=== PATIENT | female | born 2005 | race Caucasian/White ===

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

== ENCOUNTER 2024-01-04 19:43 | Emergency (ER) | payer BC, MEDICAID, SELFPAY ==
[2024-01-04 19:53] VITALS: BP 146/105; PULSE 73; RESP 18; TEMP 36.7; O2SAT 100
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
--- NOTE | 2024-01-04 21:32 | DI.RAD_ITS ---
Exam(s) XR FOOT RT COMPLETE EXAM: XR FOOT RT COMPLETE CLINICAL HISTORY: injury. TECHNIQUE: 2D digital imaging was performed of the right foot. Three images were obtained. AP, obl ique and lateral views were obtained. COMPARISON: No exams were available for comparison FINDINGS: BONES: No acute fracture is present. No bony destructive lesion is seen. Note is made of a bipartite medial sesamoid. JOINTS: No dislocation present. SOFT TISSUE: Normal. IMPRESSION: Unremarkable radiographs of the right foot. DATA REPOSITORY: RADIATION DOSE DELIVERED:
--- NOTE | 2024-01-04 21:32 | DI.RAD_ITS ---
Exam(s) XR HAND RT COMPLETE EXAM: XR HAND RT COMPLETE CLINICAL HISTORY: hand injury, pain at thenar eminence. TECHNIQUE: 2D digital imaging was performed of the right hand. Three images were obtained. AP, late ral and oblique views were obtained. COMPARISON: There are no priors for comparison. FINDINGS: BONES: No acute fracture is present. No bony destructive lesion is seen. JOINTS: No dislocation present. SOFT TISSUE: Normal. IMPRESSION: Unremarkable radiographs of the right hand. DATA REPOSITORY: RADIATION DOSE DELIVERED:
[2024-01-04] MEDS: Bacitracin 1 PACKET TP (22:10)
--- NOTE | 2024-01-04 22:13 | DI.VRAD_ITS ---
PROCEDURE INFORMATION: Exam: XR Right Hand Exam date and time: 01/04/2024 9:26 PM Age: 18 years old Clinical indication: Injury or trauma; Blunt trauma (contusions or hematomas); Hand; Right; Injury date: 01/04/24; Patient HX: Injury fall, pain at thenar eminence TECHNIQUE: Imaging protocol: Radiologic exam of the right hand. Views: 3 or more views. COMPARISON: No relevant prior studies available. FINDINGS: Bones/joints: Bone mineralization is age-appropriate. There is no evidence of fracture. No evidence of dislocation. The joint spaces are adequately preserved; no significant degenerative narrowing and no bony erosion seen. Soft tissues: No radiopaque foreign body present. There is soft tissue swelling present. IMPRESSION: 1. No acute osseous abnormality. 2. There is soft tissue swelling present. Dictated and Authenticated by: Jake Burroughs MD. Ordering:MELVIN Warren MD
--- NOTE | 2024-01-04 22:26 | DI.VRAD_ITS ---
PROCEDURE INFORMATION: Exam: XR Right Foot Exam date and time: 01/04/2024 9:21 PM Age: 18 years old Clinical indication: Injury or trauma; Blunt trauma; Foot; Right; Injury date: 01/04/24; Patient HX: Pain, fall TECHNIQUE: Imaging protocol: Radiologic exam of the right foot. Views: 3 or more views. COMPARISON: No relevant prior studies available. FINDINGS: Bones/joints: Bone mineralization is age-appropriate. There is no evidence of fracture. No evidence of dislocation. The joint spaces are adequately preserved; no significant degenerative narrowing and no bony erosion seen. Soft tissues: No radiopaque foreign body present. There is soft tissue swelling present. IMPRESSION: 1. No acute osseous abnormality. 2. There is soft tissue swelling present. Dictated and Authenticated by: Jake Burroughs MD. Ordering:MELVIN Warren MD
== END 2024-01-04 22:59 | disposition home or self-care (01) ==
PROVIDERS: Emergency Provider Nurse Practitioner Family; PCP Family Medicine
DX: S80.211A Abrasion, right knee, initial encounter (principal); S60.511A Abrasion of right hand, initial encounter; Y93.01 Activity, walking, marching and hiking; W19.XXXA Unspecified fall, initial encounter
CPT/HCPCS: 81025; 99284; 73130; 73630; 99283

== ENCOUNTER 2024-06-01 10:49 | Emergency (ER) | payer BC, SELFPAY ==
[2024-06-01] VITALS (12 sets, daily range): BP systolic 91–127; BP diastolic 38–81; PULSE 51–75; RESP 15–18; TEMP 36.5–36.8; O2SAT 96–100
--- NOTE | 2024-06-01 11:00 | RT.EKG_ITS ---
APPROVED REPORT Exam: Resting ECG Reason for Exam: DIZZINESS Patient Location: E HR:61 bpm ECG Measurements Heart Rate 61 AXIS NM 152 P 41 QRSd 86 QRS 73 QT 422 T 49 QTc 426 Conclusion Sinus rhythm...normal P axis, V-rate 60- 99
--- OUTSIDE RECORDS SUMMARY | 2024-06-01 11:02 | XMS_ITS | Encounter Summary ---
Author Organization [facility] Address [address] [place] [address] Care Team Providers Care Container Repairer Name Role Phone Unknown, Provider Primary Care Provider Unava ilable Encounter Details Date Type Department Care Team (Late st Contact Info) Description 10/08/2023 Lab Requisition [facility] Pathology & Laboratory Medicine - [facility] [address] [place] [address] Outr Resulting Lab, Provider Social History Tobacco Use Types Packs/Day Years Used Date Smoking Tobacco: Never Assessed Interpersonal Safety Answer Date Record ed Physically Hurt Never 06/02/2020 Verbally Threaten Not on file 06/02/2020 Comments Unknown Sex and Gender Information Value Date Recorded Sex Assigned at Not on file Legal Sex Female 9:52 EST Gender Identity Not on file Sexual Orientation Not on file documented as of this encounter Plan of Treatment Not on file documented as of this encounter Procedures Procedure Name Priority Date/Time Associated Diagnosis Comments CHLAMYDIA/N. GONORRHOEAE AMPLIFIED NUCLEIC ACID Routine 10/07/2023 15:00 EDT documented in this encounter Results * CHLAMYDIA/N. GONORRHOEAE AMPLIFIED RNA (10/07/2023 15:00 EDT) Neisseria gonorrhoeae Result Negative Negative 10/09/2023 15:14 EDT [facility] Chlamydia trachomatis Result Negative Negative 10/09/2023 15:14 EDT [facility] Swab ENDOCERVICAL STRUCTURE / Unknown 10/07/2023 15:00 EDT 10/08/2023 17:41 EDT us Provider Outr Resulting Lab MICROBIOLOGY - GENER AL ORDERABLES Final Result [facility] [address] [place] [address] documented in this encounter Visit Diagnoses Not on filedocumented in this encounter Care Teams Container Repairer Relationship Specialty Start Date End Date Unknown, Provider, PCP - General 03/09/24 documented as of this encounter
--- OUTSIDE RECORDS SUMMARY | 2024-06-01 11:02 | XMS_ITS | Continuity of Care Document ---
Author Organization [facility] Address [address] [place] [address] Care Team Providers Care Swimming Pool Salesperson Name Role Phone MEKA BREWER Primary Care Physician Encounter [facility] NBR [id number] Date(s): 03/24/24 - 03/24/24 [facility] [address] [place], [place] [address] Discharge Disposition: Home Allergies, Adverse Reactions, Alerts No Known Medication Allergies Assessment and Plan Future Appointments Medications Christina 24 Hour Allergy oral tablet 180 mg = 1 tab, Oral, Daily, # 30 tab, 2 Refill(s), Pharmacy: [id number] Start Date: 02/26/24 Stop Date: 05/26/24 Status: Ordered doxycycline hyclate 0 Refill(s) Start Date: 02/19/24 Status: Ordered drospirenone-ethinyl estradiol 0 Refill(s) Start Date: 02/19/24 Status: Ordered HYDROcodone-acetaminophen 5 mg-325 mg oral tablet 1 tab, Oral, every 6 hr, PRN pain, moderate, # 18 tab, 0 Refill(s), Pharmacy: [facility], 175.26, cm, 03/14/24 11:03:00 EDT, Height, 73.94, kg, 03/14/24 11:03:00 EDT, Weight Dosing Start Date: 03/20/24 Stop Date: 03/25/24 Status: Ordered metroNIDAZOLE 0 Refill(s) Start Date: 02/19/24 Status: Ordered Mirena 0 Refill(s) Start Date: 02/19/24 Status: Ordered mirtazapine 7.5 mg oral tablet 15 mg = 2 tab, Oral, every night at bedtime, # 60 tab, 0 Refill(s) Start Date: 03/14/24 Status: Ordered Nasonex 50 mcg/inh nasal spray 2 sprays, Nostril-Both, BID, # 1 EA, 2 Refill(s), Pharmacy: [id number] Start Date: 02/26/24 Stop Date: 05/26/24 Status: Ordered ondansetron 4 mg oral tablet, disintegrating 4 mg = 1 tab, Oral, every 8 hr, PRN as needed for nausea/vomiting, # 8 tab, 1 Refill(s), Pharmacy: [facility], 175.26, cm, 03/14/24 11:03:00 EDT, Height, 73.94, kg, 03/14/24 11:03:00 EDT,Weight Dosing Start Date: 03/20/24 Stop Date: 03/24/24 Status: Ordered PARoxetine 0 Refill(s) Start Date: 02/19/24 Status: Ordered predniSONE 20 mg oral tablet 40 mg = 2 tab, Oral, Daily, # 8 tab, 0 Refill(s) Start Date: 03/23/24 Stop Date: 03/27/24 Status: Ordered Singulair 10 mg oral tablet 10 mg = 1 tab, Oral, Daily, # 30 tab, 2 Refill(s), Pharmacy: [id number] Start Date: 02/26/24 Stop Date: 05/26/24 Status: Ordered Problem List Condition Confirmation Course Effective Dates Status H ealth Status Informant Tonsil stone Confirmed Active Attention deficit hyperactivity disorder (ADHD), predominantly inattentive type Confirmed Active Coughing Confirmed Active Other specified depressive episodes Confirmed Active Dysmenorrhea in adolescent Confirmed Active Ear fullness Confirmed Active Generalized anxiety disorder Confirmed Active Tonsillar hypertrophy Confirmed Active Neck mass Confirmed Active Menorrhagia with regular cycle Confirmed Active Nasal congestion Confirmed Active Nasal drainage Confirmed Active Poor concentration Confirmed Active Pulsatile tinnitus Confirmed Active Procedures Procedure Date Related Diagnosis Body Site Status Tonsillectomy and Adenoidectomy 1 03/20/24 Completed 1auto-populated from documented surgical case Social History Social History Type Response Tobacco Former tobacco user Tobacco Use:. Sex Sex Representation Female (finding) Patient Care team information Care Team Personnel Name: MEKA BREWER Position: No Access Member Role: Primary Care Physician Care Team Related Persons Name: FERNANDA JAVIER Insurance Providers Guarantor name: RC JAVIER Health Plan Information #: 1 Payer: [facility] Member Number: NA Policy Number: NA
--- OUTSIDE RECORDS SUMMARY | 2024-06-01 11:02 | XMS_ITS | Clinical Summary ---
Author Organization [facility] Address [address] [place] [address] Care Team Providers Care Trip Follower Name Role Phone Unknown, Provider Primary Care Provider Unava ilable Encounters Date Type Department Care Team Description 03/20/2024 Lab Requisition [facility] Pathology & Laboratory Medicine - [facility] [address] [place] [address] Ronnie Ramirez DO Cough, unspecified; Other chronic diseases of tonsils and adenoids; Hypertrophy of tonsils from Last 3 Months Social History Tobacco Use Types Packs/Day Years Used Date Smoking Tobacco: Never Assessed Interpersonal Safety Answer Date Record ed Physically Hurt Never 06/02/2020 Verbally Threaten Not on file 06/02/2020 Comments Unknown Sex and Gender Information Value Date Recorded Sex Assigned at Not on file Legal Sex Female 9:52 EST Gender Identity Not on file Sexual Orientation Not on file Plan of Treatment Health Maintenance Due Date Last Done Comments Hepatitis C Screen 2004 Hepatitis B Vaccine (1 of 3 - 19+ 3-dose series) 02/15 COVID-19 Vaccine ( season) 2024 Procedures Procedure Name Priority Date/Time Associated Diagnosis Comments SURGICAL PATHOLOGY Today 03/20/2024 7:30 EDT Cough, unspecified Other chronic diseases of tonsils and adenoids Hypertrophy of tonsils from Last 3 Months Results * SURGICAL PATHOLOGY (03/20/2024 7:30 EDT) Note to Patient The following pathology results have been interpreted by your pathologist and may be available to you before your health provider has had the opportunity to review them. Please allow time for your provider to receive these results and explore management options, if applicable. 03/26/2024 12:03 EDT [facility] Final Diagnosis A. TONSILS, BILATERAL, TONSILECTOMY: - Tonsils with reactive follicular hyperplasia. 03/26/2024 12:03 T [facility] Attestation There was significant resident/fellow involvement in the diagnostic evaluation of this case. By the signature below, the attending physician certifies that they have personally conducted a gross and/or microscopic examination of the described specimens and rendered or confirmed the above diagnosis. 03/26/2024 12:03 [facility] at 1203 Clinical History Chronic tonsillitis; clinical diagnosis code: J35.1, K35.8, R05.9 03/26/2024 12:03 T [facility] Gross Description A. Received in formalin labelled with proper patient identification (initials N, K) and right and left tonsil are 2 palatine tonsils (3.3 x 2.6 x 2.2 cm and 3.6 x 2.5 x 1.7 cm). The mucosal surfaces are quezada-pink, focally disrupted, and with prominent crypts. The tonsils are serially sectioned to reveal quezada-pink to love, focally hemorrhagic, lobular tissue without gross lesions. A merchandiser retail representative section of the smaller tonsil is submitted in A1 and a merchandiser retail representative section of the larger tonsil is submitted in A2. SONIYA CEJA([facility]) 03/21/2024 8:32 03/26/2024 12:03 [facility] Resident/Cameron w: Martin Gilbert MD 03/26/2024 12:03 T [facility] Performing Lab [facility] 03/26/2024 12:03 T [facility] Scanned Images 03/26/2024 12:03 [facility] Tissue SPECIMEN FROM TONSIL / Unknown 03/20/2024 7:30 EDT 03/20/2024 17:53 EDT us Ronnie Ramirez DO PATHOLOGY ORDERABLES Fi nal Result [facility] [address] [place] [phone] from Last 3 Months Insurance [facility] Care Teams Trip Follower Relationship Specialty Start Date End Date Unknown, Provider, PCP - General 03/09/24
--- OUTSIDE RECORDS SUMMARY | 2024-06-01 11:02 | XMS_ITS | Encounter Summary ---
Author Organization [facility] Address [address] [place] [address] Care Team Providers Care Manager Product Support Name Role Phone Unknown, Provider Primary Care Provider Unava ilable Encounter Details Date Type Department Care Team (Late st Contact Info) Description 06/02/2020 Lab Requisition [facility] Pathology & Laboratory Medicine - [facility] [address] [place] [address] Outr Resulting Lab, Provider Social History Tobacco [...] on file documented as of this encounter Visit Diagnoses Not on filedocumented in this encounter Care Teams Manager Product Support Relationship Specialty Start Date End Date Unknown, Provider, PCP - General 03/09/24 documented as of this encounter
--- OUTSIDE RECORDS SUMMARY | 2024-06-01 11:02 | XMS_ITS | Encounter Summary ---
Author Organization [facility] Address [address] [place] [address] Care Team Providers Care Engineer System Administrator Name Role Phone Unknown, Provider Primary Care Provider Angelica segura Encounter Details Date Type Department Care Team (Late st Contact Info) Description 10/08/2023 Lab Requisition [facility] Pathology & Laboratory Medicine - [facility] [address] [place] [address] Outr Resulting Lab, Provider Social History Tobacco [...] Procedure Name Priority Date/Time Associated Diagnosis Comments ACUTE HEPATITIS PROFILE Routine 10/07/2023 14:10 EDT documented in this encounter Results * ACUTE HEPATITIS PROFILE (10/07/2023 14:10 EDT) Hep B Surface Ag Negative Negative 10/08/2023 19:37 EDT [facility] Hep C Antibody Negative Negative 10/08/2023 19:37 EDT [facility] Hepatitis A Antibody, IgM Negative Negative 10/08/2023 19:37 EDT [facility] Comment:The results of this assay can be falsely lowered due to the consumption of Biotin. Hepatitis B Core Ab, Total Negative Negative 10/08/2023 19:37 EDT [facility] Blood VENOUS BLOOD / Unknown 10/07/2023 14:10 EDT 10/08/2023 17:02 EDT us Provider Outr Resulting Lab CHEMISTRY & BLOOD GA S ORDERABLES Final Result [facility] [address] [place] [id number] documented in this encounter Visit Diagnoses Not on filedocumented in this encounter Care Teams Engineer System Administrator Relationship Specialty Start Date End Date Unknown, Provider, PCP - General 03/09/24 documented as of this encounter
--- OUTSIDE RECORDS SUMMARY | 2024-06-01 11:02 | XMS_ITS | Encounter Summary ---
Author Organization [facility] Address [address] [place] [address] Care Team Providers Care Estate Tax Examiner Name Role Phone Unknown, Provider Primary Care Provider Unava ilable Encounter Details Date Type Department Care Team (Late st Contact Info) Description 08/16/2020 Lab Requisition [facility] Pathology & Laboratory Medicine - [facility] [address] [place] [address] Outr Resulting Lab, Provider Social History Tobacco [...] Procedure Name Priority Date/Time Associated Diagnosis Comments ZZCOVID-19 TEST [facility] PCR Today 08/16/2020 8:57 EST COVID-19 TESTING Routine 08/16/2020 8:57 EST documented in this encounter Results * COVID-19 TEST [facility] PCR (08/16/2020 8:57 EST) Swab ENTIRE NASOPHARYNX / Unknown 08/16/2020 8:57 EST 08/16/2020 15:56 EST us Provider Outr Resulting Lab MICROBIOLOGY - GENER AL ORDERABLES Final Result [facility] [address] [place] [address] * COVID-19 TESTING (08/16/2020 8:57 EST) COVID-19 rt-PCR Result Negative Negative 08/17/2020 15:45 EST [facility] Comment:Negative results do not preclude 2019-nCoV infection and should not be used as the sole basis for treatment or other patient management decisions. Negative results must be combined with clinical observations, patient history, and epidemiological information. Performing Lab [facility] 08/17/2020 15:45 EST [facility] Swab 08/16/2020 8:57 EST 08/16/2020 15:56 EST us Provider Outr Resulting Lab MICROBIOLOGY - GENER AL ORDERABLES Final Result [facility] [address] [place] [address] documented in this encounter Visit Diagnoses Not on filedocumented in this encounter Care Teams Estate Tax Examiner Relationship Specialty Start Date End Date Unknown, Provider, PCP - General 03/09/24 documented as of this encounter
--- OUTSIDE RECORDS SUMMARY | 2024-06-01 11:02 | XMS_ITS | Referral Summary ---
Author Organization [facility] Address [address] [place] [address] Care Team Providers Care Cook Fruit Name Role Phone Unknown, Provider Primary Care Provider Unava ilable Encounters Date Type Department Care Team Description 03/20/2024 Lab Requisition [facility] Pathology & Laboratory Medicine - [address] [address] Ronnie Ramirez DO Cough, unspecified; Other chronic [...] Orientation Not on file Plan of Treatment Not on file Procedures Procedure Name Priority Date/Time Associated Diagnosis [...] management options, if applicable. 03/26/2024 12:03 EDT [facility] Final Diagnosis A. TONSILS, BILATERAL, TONSILECTOMY: - Tonsils with reactive follicular hyperplasia. 03/26/2024 12:03 EDT [facility] Attestation There was significant resident/fellow involvement in the diagnostic evaluation of this case. By the signature below, the attending physician certifies that they have personally conducted a gross and/or microscopic examination of the described specimens and rendered or confirmed the above diagnosis. 03/26/2024 12:03 [facility] at 1203 Clinical History Chronic tonsillitis; clinical diagnosis code: J35.1, K35.8, R05.9 03/26/2024 12:03 T [facility] Gross Description A. Received [...] hemorrhagic, lobular tissue without gross lesions. A admitting representative section of the smaller tonsil is submitted in A1 and a admitting representative section of the larger tonsil is submitted in A2. SONIYA CEJA([facility]) 03/21/2024 8:32 03/26/2024 12:03 [facility] Resident/Cameron w: Martin Gilbert MD 03/26/2024 12:03 [facility] Performing Lab [facility] 03/26/2024 12:03 [facility] Scanned Images 03/26/2024 12:03 [facility] Tissue SPECIMEN FROM TONSIL / Unknown 03/20/2024 7:30 EDT 03/20/2024 17:53 EDT us Ronnie Ramirez DO PATHOLOGY ORDERABLES Fi nal Result [facility] [address] [place] [address] from Last 3 Months Insurance [facility] Care Teams Cook Fruit Relationship Specialty Start Date End Date Unknown, Provider, PCP - General 03/09/24
--- OUTSIDE RECORDS SUMMARY | 2024-06-01 11:02 | XMS_ITS | Continuity of Care Document ---
Author Organization [facility] Address [address] [place] [id number] Care Team Providers Care Terrazzo Roller Name Role Phone MEKA BREWER Primary Care Physician Encounter [facility] NBR [id number] Date(s): 03/20/24 - 03/20/[address] [address] Discharge Disposition: Home f/u Internal Provider Attending Physician: Ronnie Ramirez DO Admitting Physician: Ronnie Ramirez DO Referring Physician: Ronnie Ramirez DO Allergies, Adverse Reactions, Alerts No Known Medication Allergies Assessment and Plan Future Appointments Diagnostic Tests Pending * Pathology Request 03/20/24 Functional Status 03/20/24 Special Services and Community Resources None 03/20/24 ADLs Independent 03/14/24 Living Situation Home with family car e Family Member Travel History No recent t ravel Recent Travel History No recent travel Other exposure to Infectious Disease Non e Medications Christina 24 Hour Allergy oral tablet 180 mg = 1 tab, Oral, Daily, # 30 tab, 2 Refill(s), Pharmacy: [id number] Start Date: 02/26/24 Stop Date: 05/26/24 Status: Ordered doxycycline hyclate 0 Refill(s) Start Date: 02/19/24 Status: Ordered drospirenone-ethinyl estradiol 0 Refill(s) Start Date: 02/19/24 Status: Ordered HYDROcodone-acetaminophen 5 mg-325 mg oral tablet 1 tab, Oral, every 6 hr, PRN pain, moderate, # 18 tab, 0 Refill(s), Pharmacy: [facility], 175.26, cm, 03/14/24 11:03:00 EDT, [...] BID, # 1 EA, 2 Refill(s), Pharmacy: [id number] Start Date: 02/26/24 Stop Date: 05/26/24 Status: Ordered ondansetron 4 mg oral tablet, disintegrating 4 mg = 1 tab, Oral, every 8 hr, PRN as needed for nausea/vomiting, # 8 tab, 1 Refill(s), Pharmacy: [facility], 175.26, cm, 03/14/24 11:03:00 EDT, Height, 73.94, kg, 03/14/24 11:03:00 EDT,Weight Dosing Start Date: 03/20/24 Stop Date: 03/24/24 Status: Ordered PARoxetine 0 Refill(s) Start Date: 02/19/24 Status: Ordered Singulair 10 mg oral tablet 10 mg = 1 tab, Oral, Daily, # 30 tab, 2 Refill(s), Pharmacy: [id number] Start Date: 02/26/24 Stop Date: 05/26/24 [...] 03/20/24 Completed 1auto-populated from documented surgical case Results Laboratory List Name Date Urine Qual POCT 9/12/24 Most recent to oldest [Reference Range]: 1 U Preg POCT [Negative] Negative (03/20/24 6:51 AM) Vital Signs Most recent to oldest [Reference Range]: 1 2 3 Temperature Temporal Artery [36-38 Deg C] 36.9 Deg C (03/20/24 9:36 AM) 36.8 Deg C (03/20/24 8:47 AM) 37.2 Deg C (03/20/24 6:52 AM) Temperature Temporal Artery (DegF) [97.3-100 Deg F] 98.42 Deg F (03/20/24 9:36 AM) 98.24 Deg F (03/20/24 8:47 AM) Peripheral Pulse Rate [60-100 bpm] 67 bpm (03/20/24 10:10 AM) 72 bpm (03/20/24 10:04 AM) 101 bpm *HI* (03/20/24 9:50 AM) Heart Rate Monitored [60-100 bpm] 75 bpm (03/20/24 9:52 AM) 97 bpm (03/20/24 9:50 AM) 96 bpm (03/20/24 9:36 AM) Respiratory Rate [12-24 br/min] 16 br/min (03/20/24 8:59 AM) 16 br/min (03/20/24 8:47 AM) 14 br/min (03/20/24 6:52 AM) Blood Pressure [90-140/60-90 mmHg] 137/93mmHg (03/20/24 10:10 AM) 146/95mmHg *HI* (03/20/24 9:50 AM) 146/104mmHg *HI* (03/20/24 9:45 AM) Mean Arterial Pressure, Cuff [65-140 mmHg] 108 mmHg (03/20/24 10:10 AM) 112 mmHg (03/20/24 9:50 AM) 104 mmHg (03/20/24 8:59 AM) Mean Arterial Pressure Cuff 105 mmHg (03/20/24 10:10 AM) 134 mmHg (03/20/24 10:00 AM) 118 mmHg (03/20/24 9:45 AM) Weight 73.94 kg (03/14/24 10:42 AM) Weight Dosing 73.940 kg (03/14/24 10:42 AM) Height 175.26 cm (03/14/24 10:42 AM) Social History Social History Type Response Tobacco Former tobacco user Tobacco Use:. Sex Sex Representation Female (finding) Patient Care team information Care Team Personnel Name: MEKA BREWER Position: No Access Member Role: Primary Care Physician Care Team Related Persons Name: FERNANDA JAVIER Insurance Providers Guarantor name: RC JAVIER Health Plan Information #: 1 Payer: [facility] Member Number: [id number] Policy Number: NA Health Plan Information #: 2 Payer: [facility] Member Number: [id number] Policy Number: NA
--- OUTSIDE RECORDS SUMMARY | 2024-06-01 11:02 | XMS_ITS | Encounter Summary ---
Author Organization [facility] Address [address] [place] [address] Care Team Providers Care Foot Miter Operator Name Role Phone Unknown, Provider Primary Care Provider Unava ilable Encounter Details Date Type Department Care Team (Late st Contact Info) Description 03/20/2024 Lab Requisition [facility] Pathology & Laboratory Medicine - [address] [address] Ronnie Ramirez, [address] [place], [place] [id number] Cough, unspecified; Other chronic diseases of tonsils and adenoids; Hypertrophy of tonsils Social History Tobacco Use Types Packs/Day Years [...] of tonsils and adenoids Hypertrophy of tonsils documented in this encounter Results * SURGICAL PATHOLOGY (03/20/2024 7:30 EDT) Note to Patient The following pathology results have been interpreted by your pathologist and may be available to you before your health provider has had the opportunity to review them. Please allow time for your provider to receive these results and explore management options, if applicable. 03/26/2024 12:03 EDT [facility] Final Diagnosis A. TONSILS, BILATERAL, TONSILECTOMY: - Tonsils with reactive follicular hyperplasia. 03/26/2024 12:03 T [facility] Attestation There was significant resident/fellow involvement in the diagnostic evaluation of this case. By the signature below, the attending physician certifies that they have personally conducted a gross and/or microscopic examination of the described specimens and rendered or confirmed the above diagnosis. 03/26/2024 12:03 T [facility] at 1203 Clinical History Chronic tonsillitis; clinical diagnosis code: J35.1, K35.8, R05.9 03/26/2024 12:03 T [facility] Gross Description A. Received [...] hemorrhagic, lobular tissue without gross lesions. A customer sales representative section of the smaller tonsil is submitted in A1 and a customer sales representative section of the larger tonsil is submitted in A2. SONIYA CEJA([facility]) 03/21/2024 8:32 03/26/2024 12:03 T [facility] Resident/Cameron w: Martin Gilbert MD 03/26/2024 12:03 T [facility] Performing Lab [facility] 03/26/2024 12:03 T [facility] Scanned Images 03/26/2024 12:03 [facility] Tissue SPECIMEN FROM TONSIL / Unknown 03/20/2024 7:30 EDT 03/20/2024 17:53 EDT us Ronnie Ramirez DO PATHOLOGY ORDERABLES Fi nal Result [facility] [address] [place] [address] documented in this encounter Visit Diagnoses Diagnosis Cough, unspecified Other chronic diseases of tonsils and adenoids Hypertrophy of tonsils Hypertrophy of tonsils alone documented in this encounter Care Teams Foot Miter Operator Relationship Specialty Start Date End Date Unknown, Provider, PCP - General 03/09/24 documented as of this encounter
--- OUTSIDE RECORDS SUMMARY | 2024-06-01 11:02 | XMS_ITS | Encounter Summary ---
Author Organization [facility] Address [address] [place] [address] Care Team Providers Care Certified Paralegal Name Role Phone Unknown, Provider Primary Care Provider Unava ilable Encounter Details Date Type Department Care Team (Late st Contact Info) Description 10/08/2023 Lab Requisition [facility] Pathology & Laboratory Medicine - [facility] [address], [place] [id number] Outr Resulting Lab, Provider Social History Tobacco [...] Procedure Name Priority Date/Time Associated Diagnosis Comments SYPHILIS SEROLOGY Routine 10/07/2023 14: 10 EDT documented in this encounter Results * SYPHILIS SEROLOGY (10/07/2023 14:10 EDT) Syphilis Serology Negative Negative 10/09/2023 11:53 EDT [facility] Blood VENOUS BLOOD / Unknown 10/07/2023 14:10 EDT 10/08/2023 17:02 EDT us Provider Outr Resulting Lab IMMUNOLOGY AND SEROL OGY ORDERABLES Final Result [facility] [address] [place], [place] [id number] documented in this encounter Visit Diagnoses Not on filedocumented in this encounter Care Teams Certified Paralegal Relationship Specialty Start Date End Date Unknown, Provider, PCP - General 03/09/24 documented as of this encounter
--- OUTSIDE RECORDS SUMMARY | 2024-06-01 11:02 | XMS_ITS | Continuity of Care Document ---
Author Organization [facility] Address [address] [place] [id number] Care Team Providers Care Plate Grainer Name Role Phone MEKA BREWER Primary Care Physician Encounter [id number] FIN NBR [id number] Date(s): 03/23/24 - 03/23/[address] [phone] Encounter Diagnosis Uvular swelling(Discharge Diagnosis) - 03/23/24 Discharge Disposition: Home or Self Care Attending Physician: Gabe Plata MD Admitting Physician: Gabe Plata MD Allergies, Adverse Reactions, Alerts No Known Medication Allergies Assessment and Plan Extracted from: Title:ED Provider Note Author:Judie Ma Date:03/23/24 Assessment/Plan 1.??Uvular swelling??K13.79 ??Patient will contact Dr. Ramirez's office tomorrow to schedule an appointment for reevaluation and??management of her surgical questions. ??If she has any new or worsening conditions airway compromise or other concerns she will return to the emergency department immediately.?? Patient will be given a prescription in hand but not to be filled until Dr. Ramirez approves steroids over the next several days if??it is desired. Patient is given no further pain medication and will continue Tylenol and Motrin. ??Patient agrees with this discharge plan Orders: predniSONE 20 mg oral tablet, 40 mg = 2 tab, Oral, Daily, # 8 tab, 0 Refill(s) Discharge Patient, 03/23/24 21:35:00 EDT, Home Independently Follow Up With When Contact Information Ronnie Ramirez DO Within [address] [place] [phone] ?? Additional Instructions: Future Appointments Medications Christina 24 Hour Allergy oral tablet 180 mg = 1 tab, Oral, Daily, # 30 tab, 2 Refill(s), Pharmacy: [id number] Start Date: 02/26/24 Stop Date: 05/26/24 Status: Ordered doxycycline hyclate 0 Refill(s) Start Date: 02/19/24 Status: Ordered drospirenone-ethinyl estradiol 0 Refill(s) Start Date: 02/19/24 Status: Ordered HYDROcodone-acetaminophen 5 mg-325 mg oral tablet 1 tab, Oral, every 6 hr, PRN pain, moderate, # 18 tab, 0 Refill(s), Pharmacy: [facility], [id number], cm, 03/14/24 11:03:00 EDT, Height, [...] BID, # 1 EA, 2 Refill(s), Pharmacy: [id number] Start Date: 02/26/24 Stop Date: 05/26/24 Status: Ordered ondansetron 4 mg oral tablet, disintegrating 4 mg = 1 tab, Oral, every 8 hr, PRN as needed for nausea/vomiting, # 8 tab, 1 Refill(s), Pharmacy: [facility], 175.26, cm, 03/14/24 11:03:00 EDT, Height, [...] Daily, # 30 tab, 2 Refill(s), Pharmacy: [id number] Start Date: 02/26/24 Stop Date: 05/26/24 Status: Ordered Mental Status 03/23/24 Eye Opening Response Colman Spontaneous ly Best Verbal Response Colman Oriented Best Motor Response Colman Obeys comman ds Colman Coma Score 15 Problem List Condition Confirmation Course Effective Dates [...] surgical case Results Laboratory List Name Date CBC w/ Diff 03/23/24 Comprehensive Metabolic Panel (CMP) 03/23 Automated Diff 03/23/24 Most recent to oldest [Reference Range]: 1 WBC [4.8-10.8 K/mcL] 9.0 K/mcL (03/23/24 8:33 PM) RBC [4.20-5.40 Million/mcL] 4.68 Million /mcL (03/23/24 8:33 PM) Neutro Auto [42.2-75.2 %] 55.7 % (03/23/24 8:33 PM) Lymph Auto [20.5-51.1 %] 29.5 % (03/23/24 8:33 PM) [place] Auto [1.7-9.3 %] 10.7 % *HI* (03/23/24 8:33 PM) Basophil Auto [0.0-0.8 %] 0.6 % (03/23/24 8:33 PM) BUN [7-25 mg/dL] 12 mg/dL (03/23/24 8:33 PM) Glucose Level [70-109 mg/dL] 93 mg/dL (03/23/24 8:33 PM) Potassium Level [3.5-5.1 mmol/L] 3.6 mmo l/L (03/23/24 8:33 PM) Baso Absolute [0.0-0.2 K/mcL] 0.1 K/mcL (03/23/24 8:33 PM) MCV [81.0-99.0 fL] 87.5 fL (03/23/24 8:33 PM) AST [13-39 IntlUnit/L] 18 IntlUnit/L (03/23/24 8:33 PM) ALT [7-52 IntlUnit/L] 30 IntlUnit/L (03/23/24 8:33 PM) MCHC [32.0-37.0 g/dL] 32.7 g/dL (03/23/24 8:33 PM) Osmolality [275-295 mOsm/kg] 273 mOsm/kg *LOW* (03/23/24 8:33 PM) Sodium Level [136-145 mmol/L] 137 mmol/L (03/23/24 8:33 PM) Lymph Absolute [1.2-3.4 K/mcL] 2.7 K/mcL (03/23/24 8:33 PM) Hct [37.0-47.0 %] 41.0 % (03/23/24 8:33 PM) Calcium Level [8.6-10.3 mg/dL] 9.6 mg/dL (03/23/24 8:33 PM) [place] Absolute [0.1-0.6 K/mcL] 1.0 K/mcL *HI* (03/23/24 8:33 PM) Albumin Level [3.5-5.7 g/dL] 4.1 g/dL (03/23/24 8:33 PM) Protein Total [6.4-8.9 g/dL] 7.7 g/dL (03/23/24 8:33 PM) MCH [27.0-31.0 pg] 28.6 pg (03/23/24 8:33 PM) Neutro Absolute [1.4-6.5 K/mcL] 5.0 K/mc L (03/23/24 8:33 PM) Bilirubin Total [0.3-1.0 mg/dL] 0.4 mg/d L (03/23/24 8:33 PM) Hgb [12.0-16.0 g/dL] 13.4 g/dL (03/23/24 8:33 PM) Alk Phos [34-104 IntlUnit/L] 35 IntlUnit /L (03/23/24 8:33 PM) MPV [7.4-10.4 fL] 6.8 fL *LOW* (03/23/24 8:33 PM) Platelets [130-400 K/mcL] 359 K/mcL (03/23/24 8:33 PM) CO2 [21-31 mmol/L] 27 mmol/L (03/23/24 8:33 PM) Eos Absolute [0.0-0.2 K/mcL] 0.3 K/mcL *HI* (03/23/24 8:33 PM) Chloride Level [98-107 mmol/L] 102 mmol/ L (03/23/24 8:33 PM) RDW-CV [11.5-14.5 %] 12.8 % (03/23/24 8:33 PM) A/G Ratio [1.0-2.5 g/dL] 1.1 g/dL (03/23/24 8:33 PM) BUN/Creat Ratio [8.0-20.0] 17.1 (03/23/24 8:33 PM) Globulin [2.3-3.5 g/dL] 3.6 g/dL *HI* (03/23/24 8:33 PM) Slide Review Not Indicated (03/23/24 8:33 PM) Creatinine Level [0.60-1.20 mg/dL] 0.70 mg/dL (03/23/24 8:33 PM) Anion Gap [3.0-12.0] 8.0 (03/23/24 8:33 PM) Eos, Auto [0.00-3.00 %] 3.50 % *HI* (03/23/24 8:33 PM) eGFR CKD-EPI [>=60 mL/min/1.73 m2] 127 m L/min/1.73 m2 (03/23/24 8:33 PM) Vital Signs Most recent to oldest [Reference Range]: 1 2 Temperature Temporal Artery [36-38 Deg C ] 36.8 Deg C (03/23/24 8:06 PM) Peripheral Pulse Rate [60-100 bpm] 74 bp m (03/23/24 8:30 PM) 93 bpm (03/23/24 8:06 PM) Respiratory Rate [12-24 br/min] 20 br/mi n (03/23/24 8:06 PM) Blood Pressure [90-140/60-90 mmHg] 131/9 2mmHg (03/23/24 8:15 PM) 141/90mmHg *HI* (03/23/24 8:06 PM) Mean Arterial Pressure, Cuff [65-140 mmH g] 107 mmHg (03/23/24 8:06 PM) Mean Arterial Pressure Cuff 105 mmHg (03/23/24 8:15 PM) Weight 73 kg (03/23/24 8:06 PM) Weight Dosing 73.000 kg (03/23/24 8:06 PM) Height 175 cm (03/23/24 8:06 PM) Body Mass Index 23.84 kg/m2 (03/23/24 8:06 PM) Social History Social History Type Response Tobacco Former tobacco user Tobacco Use:. Sex Sex Representation Female (finding) Hospital Discharge Instructions Follow Up Care 03/23/2024 20:00:37 With:Ronnie Ramirez DO Address: [address] [place] [phone] When:24 Hours Physician Emergency department Note * SONIYA Ma: PERFORM Event Display: ED Note Physician Authored Date: [id number] RC JAVIER :2005 Age:19 years Sex:Female Visit Date:03/23/2024 Primary Care Physician: MEKA BREWER Basic Information Time Seen: SONIYA Ma / 03/23/2024 20:05 Chief Complaint Throat pain, concerned about film coating throat, and swelling following tonsilectomy on History Of Present Illness: Patient is a 19-year-old female who had??tonsillectomy on with Dr. Ramirez. ??She was told that days 3 and 4 would be the worst of her??recovery however??she was not expecting them to bethis bad. ??She notes that??she is having significant uvula swelling with??difficulty swallowing asshe gags on her uvula.?? She has been able to drink water but has had minimal??other intake. Patient has been??in significant discomfort that has been unrelieved by her Tylenol, Motrin or??oxycodone. She did attempt to reach out to Dr. Ramirez's office however??she was told that there was no one on-call for the office and that she should call her primary care.?? Same results for her primary care. This is why she presents to the emergency department. ??She does have a family friend who is a physician who felt that she may have thrush??and felt that she should come to the emergency room. ??Patient has been afebrile??she has been urinating normally and is having no??hemoptysis or??bleeding that she is aware of. Review of Systems: See HPI Physical Exam Vitals & Measurements T:??36.8?C ??(Temporal Artery)?? HR:??74??(Peripheral)?? RR:??20?? BP:??131/92?? SpO2:??100%?? HT:??175??cm?? WT:??73??kg?? BMI:??23.84?? Pain Score:??9?? O2 Therapy:??Room air?? Patient alert oriented age-appropriate well-nourished nontoxic Normocephalic atraumatic Neck supple nontender EOM intact, PERRLA, sclera nonicteric Posterior pharynx shows??no active bleeding,??mild tissue maceration??with what appears to be??a midline uvula with significant??edema, there is??what appears to be some??tissue discoloration??to the??outer aspects of the uvula with normal tissue in the middle.?? There is no evidence of abscess or??other abnormality unrelated to surgery. Clear to auscultation bilaterally Regular rate and rhythm no murmurs Appropriate mood and affect Medical Decision Making: While here in the emerged part patient was evaluated and blood work was obtained.?? There was no airway compromise, bleeding or other concern. At this time??patient was given??IV fluids, Decadron??and??blood work was obtained??which was unremarkable. Patient was feeling better was able to drink and I did not feel that??CT scanning was necessary.?? Patient at this time is comfortable discharge noting that she will follow-up with Dr. Ramirez's office tomorrow. Procedure No Qualifying Data Assessment/Plan 1.??Uvular swelling??K13.79 ??Patient will contact Dr. Ramirez's office tomorrow to schedule an appointment for reevaluation and??management of her surgical questions. ??If she has any new or worsening conditions airway compromise or other concerns she will return to the emergency department immediately.?? Patient will begiven a prescription in hand but not to be filled until Dr. Ramirez approves steroids over the next several days if??it is desired. Patient is given no further pain medication and will continue Tylenol and Motrin. ??Patient agrees with this discharge plan Orders: predniSONE 20 mg oral tablet, 40 mg = 2 tab, Oral, Daily, # 8 tab, 0 Refill(s) Discharge Patient, 03/23/24 21:35:00 EDT, Home Independently Follow Up With When Contact Information Ronnie Ramirez, Within 24 Hours [address] [place] [phone] Additional Instructions: Medication Reconciliation New Prescription predniSONE (predniSONE 20 mg oral tablet)2 tab Oral (given by mouth) every day for 4 Days. Refills:0. ?? Unchanged doxycycline (doxycycline hyclate) ?? drospirenone-ethinyl estradiol ?? fexofenadine (Christina 24 Hour Allergy oral tablet)1 tab Oral (given by mouth) every day for 30 Days. Refills: 2. ?? HYDROcodone-acetaminophen (HYDROcodone-acetaminophen 5 mg-325 mg oral tablet)1 tab Oral (given by mouth) every 6 hours as needed pain, moderate for 5 Days. Refills: 0. ?? levonorgestrel (Mirena) ?? metroNIDAZOLE ?? mirtazapine (mirtazapine 7.5 mg oral tablet)2 tab Oral (given by mouth) every night at bedtime. ?? mometasone nasal (Nasonex 50 mcg/inh nasal spray)2 Sprays Nasal (into the nose) 2 times a day for 30 Days. Refills: 2. ?? montelukast (Singulair 10 mg oral tablet)1 tab Oral (given by mouth) every day for 30 Days. Refills: 2. ?? ondansetron (ondansetron 4 mg oral tablet, disintegrating)1 tab Oral (given by mouth) every 8 hoursas needed as needed for nausea/vomiting for 2 Days. Refills: 1. ?? PARoxetine Problem List/Past Medical History Ongoing Attention deficit hyperactivity disorder (ADHD), predominantly inattentive type Coughing Dysmenorrhea in adolescent Ear fullness Generalized anxiety disorder Menorrhagia with regular cycle Nasal congestion Nasal drainage Neck mass Other specified depressive episodes Poor concentration Pulsatile tinnitus Tonsil stone Tonsillar hypertrophy Historical No qualifying data Procedure/Surgical History ???Tonsillectomy and Adenoidectomy (03/20/2024) Medication Administration Given Sodium Chloride 0.9%, 1000 mL, Medication Bolus dexamethasone 10 mg/mL injectable solution, 10 mg, IV Push Toradol, 15 mg, IV Push Allergies No Known Medication Allergies Social History Alcohol Current, 1-2 times per year- Comments: Rare Electronic Cigarette/Vaping Electronic Cigarette Use: Former use, quit more than 90 days ago. Substance Use Current, Marijuana, Daily- Comments: Marijuana at night Tobacco Former tobacco user Tobacco Use:. Lab Results CBC and Differential?? LATEST RESULTS?? WBC?? 03/23/24 20:33?? 9.0?? RBC?? 03/23/24 20:33?? 4.68?? Hgb?? 03/23/24 20:33?? 13.4?? Hct?? 03/23/24 20:33?? 41.0?? MCV?? 03/23/24 20:33?? 87.5?? MCH?? 03/23/24 20:33?? 28.6?? MCHC?? 03/23/24 20:33?? 32.7?? RDW-CV?? 03/23/24 20:33?? 12.8?? Platelets?? 03/23/24 20:33?? 359?? MPV?? 03/23/24 20:33?? 6.8 ??Low?? Neutro Auto?? 03/23/24 20:33?? 55.7?? Lymph Auto?? 03/23/24 20:33?? 29.5?? [place] Auto?? 03/23/24 20:33?? 10.7 ??High?? Eos, Auto?? 03/23/24 20:33?? 3.50 ??High?? Basophil Auto?? 03/23/24 20:33?? 0.6?? Neutro Absolute?? 03/23/24 20:33?? 5.0?? Lymph Absolute?? 03/23/24 20:33?? 2.7?? [place] Absolute?? 03/23/24 20:33?? 1.0 ??High?? Eos Absolute?? 03/23/24 20:33?? 0.3 ??High?? Baso Absolute?? 03/23/24 20:33?? 0.1?? Slide Review?? 03/23/24 20:33?? Not Indicated? Routine Chemistry?? LATEST RESULTS?? Sodium Level?? 03/23/24 20:33?? 137?? Potassium Level?? 03/23/24 20:33?? 3.6?? Chloride Level?? 03/23/24 20:33?? 102?? CO2?? 03/23/24 20:33?? 27?? Alk Phos?? 03/23/24 20:33?? 35?? AST?? 03/23/24 20:33?? 18?? ALT?? 03/23/24 20:33?? 30?? BUN?? 03/23/24 20:33?? 12?? Glucose Level?? 03/23/24 20:33?? 93?? Creatinine Level?? 03/23/24 20:33?? 0.70?? BUN/Creat Ratio?? 03/23/24 20:33?? 17.1?? eGFR CKD-EPI?? 03/23/24 20:33?? 127?? Calcium Level?? 03/23/24 20:33?? 9.6?? Protein Total?? 03/23/24 20:33?? 7.7?? Albumin Level?? 03/23/24 20:33?? 4.1?? Globulin?? 03/23/24 20:33?? 3.6 ??High?? A/G Ratio?? 03/23/24 20:33?? 1.1?? Bilirubin Total?? 03/23/24 20:33?? 0.4?? Anion Gap?? 03/23/24 20:33?? 8.0?? Osmolality?? 03/23/24 20:33?? 273 ??Low? Electronically Signed on 03/23/2024 22:00 EDT SONIYA Ma Emergency department Discharge instructions * SONIYA Ma: PERFORM Event Display: ED Discharge Information Authored Date: [id number] RC JAVIER :2005 Age:19 years Sex:Female Visit Date:03/23/2024 Primary Care Physician: MEKA BREWER Discharge Instructions We would like to thank you for allowing us to assist you with your healthcare needs. The following includes patient education materials and information regarding your injury/illness. Diagnosis from Today's Visit Uvular swelling Discharge Vitals Temperature??(Temporal Artery) 98.2 ??F (36.8 ??C) Heart Rate??(Peripheral) 74 Respiratory Rate?? 20 Blood Pressure?? 131/92?? SpO2?? 100% Height?? 68.90 in (175 cm) Weight?? 160.96 lb (73 kg) BMI?? 23.84 Allergies No Known Medication Allergies What to Do Next Instructions from Your Care Team Follow-up with Dr. Ramirez At this time??I do not feel that any interventions are necessary other than steroids Your white count is normal??and??your??surgical site??appears to be intact with some??uvular swelling??and edema. Return for any new or worsening conditions Tylenol Motrin, pain meds as needed You Need to Schedule the Following Appointments Follow Up with??Ronnie Ramirez, DO When:??Within 24 Hours Where: [address] [place] [address] Upcoming Scheduled Appointments Sunday 8:15 AM EST ?? Where: [facility] Otol[facility] Status: Confirmed You were treated today on an emergency basis; it may be downs to contact your primary care provider to notify them of your visit today. You may have been referred to your regular doctor or a specialist, please follow up as instructed. If your condition worsens or you can't get in to see the doctor, contact the Emergency Department. Medications What How Much When Instructions Next Dose New predniSONE (predniSONE 20 mg oral tablet) 2 tab Oral (given by mouth) Every day Duration: 4 Days Printed Prescription Unchanged doxycycline (doxycycline hyclate) Unchanged drospirenone-ethinyl estradiol Unchanged fexofenadine (Christina 24 Hour Allergy oral tablet) 1 tab Oral (given by mouth) Every day Duration: 30 Days Unchanged HYDROcodone-acetaminophen (HYDROcodone-acetaminophen 5 mg-325 mg oral tablet) 1 tab Oral (given by mouth) Every 6 hours as needed for pain, moderate Duration: 5 Days Unchanged levonorgestrel (Mirena) Unchanged metroNIDAZOLE Unchanged mirtazapine (mirtazapine 7.5 mg oral tablet) 2 tab Oral (given by mouth) Every night at bedtime Unchanged mometasone nasal (Nasonex 50 mcg/ inh nasal spray) 2 Sprays Nasal (into the nose) 2 times a day Duration: 30 Days Unchanged montelukast (Singulair 10 mg oral tablet) 1 tab Oral (given by mouth) Every day Duration: 30 Days Unchanged ondansetron (ondansetron 4 mg oral tablet, disintegrating) 1 tab Oral (given by mouth) Every 8 hours as needed for as needed for nausea/vomiting Duration: 2 Days Unchanged PARoxetine Tests Performed Medications and Immunizations Administered Given Sodium Chloride 0.9%, 1000 mL, Medication Bolus dexamethasone 10 mg/mL injectable solution, 10 mg, IV Push Toradol, 15 mg, IV Push Lab Test Name Test Result Date/Time WBC 9.0 K/mcL 03/23/2024 20:33 EDT RBC 4.68 Million/mcL 03/23/2024 20:33 EDT Hgb 13.4 g/dL 03/23/2024 20:33 EDT Hct 41.0 % 03/23/2024 20:33 EDT MCV 87.5 fL 03/23/2024 20:33 EDT MCH 28.6 pg 03/23/2024 20:33 EDT MCHC 32.7 g/dL 03/23/2024 20:33 EDT RDW-CV 12.8 % 03/23/2024 20:33 EDT Platelets 359 K/mcL 03/23/2024 20:33 EDT MPV 6.8 fL 03/23/2024 20:33 EDT Neutro Auto 55.7 % 03/23/2024 20:33 EDT Lymph Auto 29.5 % 03/23/2024 20:33 EDT [place] Auto 10.7 % 03/23/2024 20:33 EDT Eos, Auto 3.50 % 03/23/2024 20:33 EDT Basophil Auto 0.6 % 03/23/2024 20:33 EDT Neutro Absolute 5.0 K/mcL 03/23/2024 20:33 EDT Lymph Absolute 2.7 K/mcL 03/23/2024 20:33 EDT [place] Absolute 1.0 K/mcL 03/23/2024 20:33 EDT Eos Absolute 0.3 K/mcL 03/23/2024 20:33 EDT Baso Absolute 0.1 K/mcL 03/23/2024 20:33 EDT Slide Review Not Indicated 03/23/2024 20:33 EDT Sodium Level 137 mmol/L 03/23/2024 20:33 EDT Potassium Level 3.6 mmol/L 03/23/2024 20:33 EDT Chloride Level 102 mmol/L 03/23/2024 20:33 EDT CO2 27 mmol/L 03/23/2024 20:33 EDT Alk Phos 35 IntlUnit/L 03/23/2024 20:33 EDT AST 18 IntlUnit/L 03/23/2024 20:33 EDT ALT 30 IntlUnit/L 03/23/2024 20:33 EDT BUN 12 mg/dL 03/23/2024 20:33 EDT Glucose Level 93 mg/dL 03/23/2024 20:33 EDT Creatinine Level 0.70 mg/dL 03/23/2024 20:33 EDT BUN/Creat Ratio 17.1 03/23/2024 20:33 EDT eGFR CKD-EPI 127 mL/min/1.73 m2 03/23/2024 20:33 EDT Calcium Level 9.6 mg/dL 03/23/2024 20:33 EDT Protein Total 7.7 g/dL 03/23/2024 20:33 EDT Albumin Level 4.1 g/dL 03/23/2024 20:33 EDT Globulin 3.6 g/dL 03/23/2024 20:33 EDT A/G Ratio 1.1 g/dL 03/23/2024 20:33 EDT Bilirubin Total 0.4 mg/dL 03/23/2024 20:33 EDT Anion Gap 8.0 03/23/2024 20:33 EDT Osmolality 273 mOsm/kg 03/23/2024 20:33 EDT Patient/Health Care Attorney Signature Patient Name:RC JAVIER I have received this information and my questions have been answered. Patient/Health Care Attorney Name: Patient/Health Care Attorney Signature: Relationship to Patient: Witness Name/Signature: Date: Electronically Signed on: 03/23/2024 21:35 EDTSigned by: Patient Care team information Care Team Personnel Name: MEKA BREWER Position: No Access Member Role: Primary Care Physician Care Team Related Persons Name: FERNANDA JAVIER Insurance Providers Guarantor name: RC JAVIER Health Plan Information #: 1 Payer: [facility] Member Number: [id number] Policy Number: NA Health Plan Information #: 2 Payer: [facility] Member Number: [id number] Policy Number: NA
--- NOTE | 2024-06-01 11:03 | ED.GENADUL_ITS ---
Discharge Plan Disposition Patient Disposition: Home Condition: Stable Discharge Details Clinical Impression: N&V (nausea and vomiting) Primary Care Provider: Campbell White ED Provider: Emil Marie Home Meds and New Rx's Prescriptions: Continued Brenda 14 mcg/24 hrs (3 yrs) 13.5 mg intrauterine device 1 device intrauterine ONCE Rx Instructions: as a single dose trazodone 50 mg tablet 50 mg PO QHS Patient Comments: TAKE ONE-HALF TO ONE TABLET BY MOUTH AT BEDTIME NEEDED fexofenadine 180 mg tablet 180 mg PO DAILY Patient Comments: TAKE ONE TABLET BY MOUTH EVERY DAY mometasone 50 mcg/actuation spray,non-aerosol 2 spray INTRANASAL BID Patient Comments: INSTILL 2 SPRAYS INTO EACH NOSTRIL TWO TIMES A DAY montelukast 10 mg tablet 10 mg PO DAILY Patient Comments: TAKE ONE TABLET BY MOUTH EVERY DAY trazodone 50 mg tablet 50 mg PO DAILY PRN (Reason: insomnia) Patient Comments: TAKE ONE-HALF TO ONE TABLET BY MOUTH AT BEDTIME NEEDED fexofenadine 180 mg tablet 180 mg PO DAILY Patient Comments: TAKE ONE TABLET BY MOUTH EVERY DAY mometasone 50 mcg/actuation spray,non-aerosol 2 spray INTRANASAL BID Patient Comments: INSTILL 2 SPRAYS INTO EACH NOSTRIL TWO TIMES A DAY montelukast 10 mg tablet 10 mg PO DAILY Patient Comments: TAKE ONE TABLET BY MOUTH EVERY DAY ferrous sulfate [Feosol] 325 mg (65 mg iron) tablet 325 mg PO DAILY cranberry 500 mg capsule 300 mg PO DAILY Rx Instructions: administer with a meal Discontinued norgestimate-ethinyl estradiol 0.25-35 mg-mcg (21) tablet 1 tab PO DAILY paroxetine HCl 20 mg tablet 20 mg PO DAILY Patient Comments: TAKE ONE-HALF TABLET BY MOUTH EVERY DAY FOR 6 DAYS; THEN TAKE ONE TABLET DAILY hydroxyzine HCl 50 mg tablet 50 mg PO DAILY Patient Comments: TAKE ONE TABLET BY MOUTH EVERY DAY NEEDED Discharge Instructions Additional Instructions: Your blood work today did not show any concerning findings at this If your symptoms continue this week follow-up with your primary care provider or express If you feel more ill, have persistent vomiting or severe abdominal pain return to the emergency department for reevaluation HPI General Mode of arrival: ambulatory . Date/Time Provider Initiated Documentation: 06/01/24 10:51 . Limitations to Documentation: no limitations . Information obtained by: patient . History of Present Illness 19 year old F presents to the emergency department with the chief complaint of n/v, described as moderate, Patient started experiencing this day(s) (4) and it has been intermittent. No relieving factors improve symptom(s), No exacerbating factors reported . Patient notes denies chest pain, fever/chills and shortness of breath. Patient did receive the following treatments prior to arrival, none Related Data Home Medications ?Medication ?Instructions ?Recorded ?Confirmed levonorgestrel 14 mcg/24 hr (up to 1 device intrauterine ONCE 05/14/20 06/01/24 3 yrs) 13.5 mg intrauterine device (Brenda) cranberry 500 mg capsule 300 mg PO DAILY 06/01/24 06/01/24 ferrous sulfate 325 mg (65 mg 325 mg PO DAILY 06/01/24 06/01/24 iron) tablet (Feosol) fexofenadine 180 mg tablet 180 mg PO DAILY 06/01/24 06/01/24 fexofenadine 180 mg tablet 180 mg PO DAILY 06/01/24 06/01/24 mometasone 50 mcg/actuation nasal 2 spray intranasal BID 06/01/24 06/01/24 spray mometasone 50 mcg/actuation nasal 2 spray intranasal BID 06/01/24 06/01/24 spray montelukast 10 mg tablet 10 mg PO DAILY 06/01/24 06/01/24 montelukast 10 mg tablet 10 mg PO DAILY 06/01/24 06/01/24 trazodone 50 mg tablet 50 mg PO DAILY PRN insomnia 06/01/24 06/01/24 trazodone 50 mg tablet 50 mg PO QHS 06/01/24 06/01/24 Allergies Allergy/AdvReac Type Severity Reaction Status Date / Time citalopram AdvReac Intermediate Feelings Verified 06/01/24 10:55 of Panic attacks General Stated Complaint: GenMedical SOCRATES: 3 Review of Systems All systems reviewed & are unremarkable except as noted in HPI and below Constitutional Constitutional: Denies chills and Denies fever(s) Cardiovascular Cardiovascular: Denies chest pain and Denies dyspnea Respiratory Respiratory: Denies cough and Denies dyspnea Gastrointestinal Gastrointestinal: Denies abdominal pain, Reports nausea and Reports vomiting Musculoskeletal Musculoskeletal: Reports back pain and Denies joint swelling Psychiatric Psychiatric: Denies depression Exam Const General: no acute distress Orientation: alert [facility] Head: normal to inspection Ears: external ears normal General nose exam: external nose normal Mouth: moist mucous membranes Eyes General: appearance normal, both eyes and all related structures Neck Neck: normal visual inspection Resp Effort & Inspection: normal respiratory effort and able to speak in complete sentences Auscultation: clear to auscultation bilaterally Cardio Jugular venous pressure: no JVD Rate: regular rate Heart Sounds: no murmurs GI Palpation: soft and nontender Back/Spine/Pelvis Back: no CVA tenderness Skin General skin exam: no rashes or lesions noted Neuro General: patient alert and patient oriented x3 Extrem General: normal to inspection Psych Mental Status: mental status grossly normal Course Vital Signs Vital signs: Vital Signs Temperature 36.5 C 06/01/24 10:53 Pulse 75 06/01/24 10:53 Respiratory Rate 16 06/01/24 10:53 Blood Pressure 127/81 06/01/24 10:53 Pulse Oximetry 97 06/01/24 10:53 Temperature 36.5 C 06/01/24 10:53 Temperature Source Oral 06/01/24 10:53 Pulse 75 06/01/24 10:53 Respiratory Rate 16 06/01/24 10:53 Respiratory Effort Normal, Non-Labored 06/01/24 10:57 Blood Pressure 127/81 06/01/24 10:53 Blood Pressure Position Sitting 06/01/24 10:53 Pulse Oximetry 97 06/01/24 10:53 Oxygen Delivery Method Room Air 06/01/24 10:53 Oxygen Flow Rate 0 06/01/24 10:53 Medical Decision Making 19-year-old female with a history of anxiety comes in with 4 days of intermittent vomiting, nausea, mild frontal headache and lower back pain. Denies any fevers, chills, difficulty breathing, cough, chest pain. No significant abdominal pain. She localizes the pain to the right and left lower lumbar region. She has no CVA tenderness. Her abdomen is soft and nontender. She does note some burning when she pees. Given her symptoms we will check a CBC and CMP to evaluate for possible signs of infection or electrolyte abnormality, will also check a UA and . Abdomen is soft and nontender so doubt surgical pathology such as appendicitis or cholecystitis. Her headache that she describes as mild on the front of her forehead. It is not severe and not thunderclap in etiology so doubt hemorrhage did not feel any CT imaging is indicated. She has no meningismus and no fever so doubt [employer] infection. Her lower back pain is reproducible so I suspect musculoskeletal back pain, she has no saddle anesthesia and intact distal sensation in her feet and normal reflexes, denies IV drug use, no findings on exam or history to suggest cauda equina, spinal epidural abscess or osteomyelitis not feel any acute imaging of her back is indicated. Patient feels better and is tolerating p.o., lab work unremarkable also has no abdominal tenderness. No signs of infection on UA. Given reassuring workup and improved symptoms with Toradol and Zofran do not feel imaging indicated, she will follow-up with her PCP and return precautions Differential Diagnosis Differential Diagnosis: UTI, pyelonephritis, electrolyte abnormality Lab Data Lab results reviewed: Yes I reviewed the patient's lab results. ECG Data Attestation: I personally reviewed and interpreted this ECG (s) as follows: Prior ECG tracings: not available for review Interpretation: Sinus rhythm, rate of 61, IN 152, no stemi Quality:SDOH Health Related Social Needs: No Data to Display PFSH All Active Problems (Updated 06/01/24 @ 12:13 by Emil Marie MD) N&V (nausea and vomiting) (Acute) Hx of anterior cruciate ligament tear reconstruction (Acute) 12/04/2019 Dysmenorrhea in adolescent (Acute) Generalized anxiety disorder (Acute) Family History (Updated 05/11/20 @ 09:11 by Jina Delgado NP) Mother Depression Social History Smoking/Tobacco Use Status: Never Smoking risk assessment performed?: Yes Alcohol Intake: never Drug use: Daily Substance use type: marijuana Do you feel safe at home: Yes Do you feel safe in your relationship?: Yes
[2024-06-01] MEDS: Ondansetron O.D.T. 4 MG TABEF PO (11:07)
[2024-06-01] MEDS: Ketorolac 15 MG/ML VIAL IVP (11:42)
[2024-06-01 11:55] LABS: Abs Immature Grans 0.01 10^3/uL (0.0-0.06); Absolute Basophil Count 0.04 10^3/uL (0.0-0.2); Absolute Eosinophil Count 0.15 10^3/uL (0.0-0.7); Absolute Lymphocyte Count 2.11 10^3/uL (1.2-3.4); Absolute Monocyte Count 0.39 10^3/uL (0.1-0.8); Basophils % 0.7 %; Eosinophils % 2.8 %; HCT 40.8 % (36.0-46.0); HGB 13.5 g/dL (11.2-15.7); Immature Grans % 0.2 %; Lymphocytes % 39.1 %; MCH 29.1 pg (27.0-33.0); MCHC 33.1 % (32.0-36.0); MCV 88 fL (80-95); MPV 8.8 fL (8.0-11.0); Monocytes % 7.2 %; Platelet Count 280 10^3/uL (130-400); RBC 4.64 10^6/uL (3.93-5.22); RDW-SD 38.6 fL
[2024-06-01 12:05] LABS: Bilirubin Negative (Negative); Blood Small (Negative); Clarity Clear (Clear); Glucose Negative (Negative); Ketones Negative (Negative); Leukocyte Esterase Negative (Negative); Nitrite Negative (Negative); Urobilinogen 0.2 mg/dL (Up to 0.2)
[2024-06-01 12:07] LABS: HCG Qual (Serum) Negative
[2024-06-01 12:10] LABS: ALT 49 U/L (14-59); AST 20 U/L (15-37); Albumin 4.2 g/dL (3.4-5.0); Alkaline Phosphatase 53 U/L (46-116); Anion Gap 9.4 mmol/L (3-11); BUN 10 mg/dL (7-18); Bilirubin, Total 0.29 mg/dL (0.2-1.0); CO2 27.6 mmol/L (21.0-32.0); CREATININE 0.9 mg/dL (0.55-1.02); Calcium 9.3 mg/dL (8.5-10.1); Chloride 108 mmol/L (98-107); Estimated GFR 93.86 (mL/min/1.73m2); Glucose 81 mg/dL (74-106); Magnesium 2.2 mg/dL (1.8-2.4); Potassium 3.9 mmol/L (3.5-5.1); Sodium 145 mmol/L (136-145); Total Protein 8.3 g/dL (6.4-8.2)
[2024-06-01 12:26] LABS: COVID-19 PCR Negative (Negative); Influenza A PCR Negative (Negative); Influenza B PCR Negative (Negative); RSV PCR Negative (Negative)
[2024-06-01 12:29] LABS: Source Nasopharynx
[2024-06-01 12:30] LABS: Bacteria Rare HPF (Negative); Epithelial Cells Few HPF (Negative); RBC 0-2 HPF (0-2); WBC 0-2 HPF (0-5)
[2024-06-01 12:31] LABS: C & S Indicated? No; Casts Negative LPF (Negative); Crystals Negative HPF (Negative); Mucus Heavy (Negative)
== END 2024-06-01 13:03 | disposition home or self-care (01) ==
PROVIDERS: Emergency Provider Emergency Medicine; PCP Family Medicine
DX: R11.2 Nausea with vomiting, unspecified (principal); M54.50 Low back pain, unspecified
CPT/HCPCS: 80053; 87637; 93005; 96374; 99284; 81003; 81015; 83735; 84703; 85025; 93010; J1885

== ENCOUNTER 2025-04-23 13:57 | Outpatient (RCR) | payer BC, SELFPAY ==
--- NOTE | 2025-04-28 10:06 | W.HOLTRPT ---
Date of service: 04/28/25 Time of Service: 10:06 Holter Monitor Report Referring Provider:: Campbell White Indications:: Palpitations Holter Monitor Note: This is a 48-hour Holter monitor Rhythm throughout was sinus with an average heart rate of 82. Minimum of 49, maximum 140 There are very rare isolated atrial and ventricular ectopic beats There was no atrial fibrillation, no high-grade AV block, no pauses greater than 3 seconds All reported patient's symptoms correlated to sinus rhythm heart rates in the 70s and 80s
== END 2025-05-08 23:59 | disposition home or self-care (01) ==
LOC: CARDOPNVT 13:57
PROVIDERS: PCP Family Medicine; Visit Provider Internal Medicine Cardiovascular Disease
DX: R00.2 Palpitations (principal)
CPT/HCPCS: 93225; 93226